=== PATIENT | male | born 1975 | race Caucasian/White ===

== ENCOUNTER 2016-08-17 18:41 | Emergency (ER) | payer OTHER ==
[2016-08-17 18:51] VITALS: BP 148/100; PULSE 117; RESP 18; O2SAT 97
--- NOTE | 2016-08-17 19:07 | ED.REPORT ---
HPI-Abd Pain M Under 42 Date of Service Aug 17, 2016 ED Provider: Dr. William Rosado MD A 41 year old male with a history of kidney stones and epilepsy presents to the ED via EMS complaining of left flank pain that began one day ago. The pain became increasingly worse approx. 30 min ago. Patient has also been experiencing hematuria. He reports that he was diagnosed with hydronephrosis at [facility] one month ago. He states that he recently moved here from [place] and does not have a PCP. He has been seen at [facility] several times for similar symptoms. Medical record from [facility] reports that the patient has used multiple aliases at different facilities. He recently presented to [facility] requesting pain medication. The record recommends: DO NOT provide any controlled substances in the ED. Patient currently has 8 different prescribers under 8 different aliases. [employer] [place] [employer] was contacted on 07/31 due to the falsification of information in order to obtain controlled substances. Nursing Notes Stated Complaint: LEFT FLANK PAIN Chief Complaint: Male Abdominal Pain Nursing Notes Reviewed: Yes General Time Seen by MD: 19:07 Chief Complaint Flank pain left Hx Obtained From: Patient Arrived By: Ambulance Sudden in Onset?: No Onset Occurred: Yesterday Symptom Duration: Since onset Location: : Diffuse Quality: Painful Radiation: : Does not radiate Severity: Current: Moderate Severity: Maximum: Moderate Associated with: Reports: Hematuria Pertinent Negative: Pt denies other symptoms Recent Healthcare: Recent doctor visit, Recent hospitalization Past Medical History Past Medical History Notes: [facility] report states that the patient has a history of false aliases in order to obtain prescription pain medication. Past Medical History Epilepsy Reports: History of kidney stones Past Surgical History Lithotripsy Smoking History Unknown if Ever Smoker Social History Other Social History: Local resident (Patient recently moved to [facility] from [place]) Ambulatory Status Independent Review of Systems Constitutional: Denies: Chills, Fever Respiratory: Denies: Shortness of breath GI: Denies: Nausea, Vomiting Male: Reports Hematuria Complete sys rev & neg: except as marked. Neurologic: Denies: Change LOC Physical Exam Initial Vital Signs Vital Signs (First) Date Time Temp Pulse Resp B/P Pulse Ox O2 Delivery O2 Flow Rate FiO2 08/17/16 18:51 36.2 117 18 148/100 97 Room Air Initial VS: Reviewed Head / Eyes: Atraumatic, Normocephalic, PERRL Extremities: Vascular intact, Neuro intact, No swelling, No tenderness Skin: Warm, Dry, No cyanosis Neurologic: Alert, Oriented, Nonfocal General/Constitutional: Awake, Alert Respiratory / Chest: Atraumatic, Breath sounds NL, Breath sounds = bilat Cardiovascular: Heart rate NL, Regular rhythm, Heart sounds NL Abdomen: Atraumatic, Soft Tenderness/Guarding/Rebound: Positive: Tender flank L Back: Atraumatic, Inspection NL Interpretation & Diagnostics Lab Results Interpretation Test 08/17/16 19:15 08/17/16 19:24 Hold Purple Top Tube Received (Received) Hold Blue Top Tube Received (Received) Hold Red Top Tube Received (Received) Hold Hot [place] Top Tube Received (Received) Urine Color Red (YELLOW) Urine Appearance Cloudy (CLEAR,HAZY) Urine pH 5.5 (5.0-8.0) Urine Specific [place] 1.025 (1.003-1.035) Urine Protein 30mg/dL (NEG,TRACE) Urine Glucose (UA) Negativemg/dL (NEGATIVE) Urine Ketones 15mg/dL (NEGATIVE) Urine Occult Blood Large (NEGATIVE) Urine Nitrite Negative (NEGATIVE) Urine Bilirubin Negative (NEGATIVE) Urine Urobilinogen Normalmg/dL (NORMAL) Urine Leukocyte Esterase Small (NEGATIVE) Urine RBC Packed/hpf (0-2) Urine WBC 6-10/hpf (0-5) Urine Epithelial Cells Few/hpf (NONE-MOD) Urine Crystals None seen (NONE SEEN) Urine Bacteria Few/hpf (NONE-FEW) Urine Hyaline Casts Rare/lpf (NONE) Urine Granular Casts None seen (NONE SEEN) Urine Waxy Casts None seen (NONE SEEN) Urine Red Blood Cell Casts None seen (NONE SEEN) Urine White Blood Cell Casts None seen (NONE SEEN) Urine Mucus Present (None Seen) Urine Trichomonas None seen (NONE SEEN) Urine Yeast None (NONE SEEN) Urinalysis Comment None Re-Eval/Medical Decision Med Decision/Clinical Course He was brought to my attention that Mr. Chao has a problem with opiates. He has been seen by multiple providers. The ED report describe what has been going on. I talked to him about this. He was appreciative of my fourth rightness. I will refer for local follow-up. I did prescribe Naprosyn because he may well be having a kidney stone. He declined to have a CT scan. Re-Evaluation/Progress : Time of Eval: 20:04 Patient Status: Condition improved Re-Evaluation/Progress Note: Patient is rechecked. He is informed of his lab results and diagnoses. Patient is informed that he will not recieve a prescription for narcotics. He understands and agrees with the treatment plan to discharge. Counseled Regarding: Diagnosis, Lab results, Need for follow-up, When/why to return to ED Patient Discharge & Departure Primary Impression: Left flank pain Disposition: Home Discharge Condition All VS Reviewed: Yes Condition: Stable Patient Instructions: Acute Abdominal Pain (ED) Additional Instructions: Thank you for trusting us with your care this evening. Your results are reassuring that there is no dangerous cause for concern at this time. However you may need another CT scan of your kidneys if the pain persists. We are unable to provide controlled substances in the emergency department for recurrent pain. Please schedule a follow up appointment with the [facility] in the next week to help with pain control. Please take Naprosyn 2 times daily as needed for pain and take Flomax to help you pass any potential kidney stones. You were administered a single dose of Dilaudid tonight. This is an opiate and may cause drowsiness. Please do not drink alcohol or drive for the next 12 hours. Please return to the emergency department for any new or worsening conditions. Referrals: [facility] Tasha Attestation Portions of this note were transcribed by Gladys Nichols. I, Dr. Rosado personally performed the history, physical exam and medical decision-making; I reviewed and confirmed the accuracy of the information in the transcribed note. Signed by: Tasha Marcus, 08/17/16 2115. copies to: [facility] William Rosado DO Aug 17, 2016 19:07 GLADYS NICHOLS Aug 17, 2016 19:22
[2016-08-17] MEDS ORDERED: 0.9% Sodium Chloride 1,000 ML IV SCH (19:20)
[2016-08-17] MEDS ORDERED: HYDROmorphone 0.5 mg/0.5 mL iSecure Syringe IVPUSH ONE (20:00)
[2016-08-17 20:14] LABS: COLOR,URINE RED (YELLOW)
[2016-08-17 20:15] LABS: APPEARANCE,URINE CLOUDY (CLEAR,HAZY); OCCULT BLOOD,URINE LARGE (NEGATIVE); PH,URINE 5.5 (5.0-8.0); UROBILINOGEN,URINE NORMAL (NORMAL)
[2016-08-17 20:24] VITALS: BP 142/94; PULSE 110; RESP 18; O2SAT 98
[2016-08-18] MEDS ORDERED: Sodium Chloride LOK Flush 10 mL Syringe IVFLUSH SCH (00:30)
== END 2016-08-17 20:25 | disposition home or self-care (01) ==
LOC: SED 18:41 → EDBD 18:41 → SED 20:25
DX: R10.32 Left lower quadrant pain (principal); R31.9 Hematuria, unspecified; G40.909 Epilepsy, unspecified, not intractable, without status epilepticus; Z87.442 Personal history of urinary calculi; Z98.890 Other specified postprocedural states
CPT/HCPCS: 81001; 96361; 96374; 99284; J1170; J7030